=== PATIENT | male | born 1955 | race Caucasian/White ===

== ENCOUNTER 2024-11-06 11:18 | Observation (INO) | payer MEDICARE, BC, SELFPAY ==
[2024-11-06] VITALS (58 sets, daily range): BP systolic 126–236; BP diastolic 60–156; PULSE 47–73; RESP 13–35; TEMP 35.7–36.4; O2SAT 96–100; BMI 25.0
--- NOTE | 2024-11-06 13:28 | EKG_ITS ---
[address] [address] Test Date: 2024-11-06 Pat Name: Jacob Fernández Department: Room: Gender: Male [employer]: ANASTASIIA : 1955 Requested By: Order Number: [id number] Reading MD: Jason Díaz MD Measurements Intervals [place] Rate: 51 P: 117 [place]: 138 QRS: -58 QRSD: 86 T: 73 QT: 488 QTc: 449 Interpretive Statements Sinus bradycardia with sinus arrhythmia Left anterior fascicular block NO PRIOR TRACING Electronically Signed On 11-11-2024 7:42:08 PDT by Jason Díaz MD
--- NOTE | 2024-11-06 14:02 | DI.CT.S_ITS ---
PROCEDURE: CT ANGIO CHEST ABDOMEN PELVIS INDICATIONS: recurrent abd pain, n/v/htn TECHNIQUE: Precontrast 5 mm thick sections acquired from the lung apices to the iliac crests. After the administration of intravenous contrast, 2.5 mm thick sections again acquired from the lung apices to the iliac crests. Maximum intensity projection (MIP) oblique sagittal and coronal reformats were then acquired. For radiation dose reduction, the following was used: automated exposure control. COMPARISON: None. FINDINGS: Image quality: Diagnostic. AORTA: No aortic aneurysm. No acute aortic syndrome. CHEST: Lower Neck: No enlarged lymph nodes. Thyroid: No thyroid nodules which require sonographic evaluation. Axillae: No enlarged lymph nodes. Chest Wall: Unremarkable. Lungs and Pleura: No pneumothorax or pleural effusions. No consolidation or suspicious nodules. Heart: Heart size is enlarged. No pericardial effusion. Thoracic Vessels: Pulmonary arteries demonstrate normal size. Dense 3 vessel coronary artery atherosclerotic calcifications are seen. Mediastinum and Eugenia: No enlarged lymph nodes. Esophagus: No wall thickening. No significant hiatal hernia. ABDOMEN: Liver: No solid mass. Gallbladder: No radiopaque gallstones or wall thickening. Biliary ducts: No biliary dilation. Pancreas: No ductal dilation. Spleen: Size is within normal limits. Adrenal Glands: No adrenal nodules. Kidneys and Ureters: No hydronephrosis. No solid mass. Mild heterogeneous enhancement of bilateral renal parenchyma with bilateral perinephric fat stranding is seen concerning for pyelonephritis. No discrete perinephric fluid collection. Stomach and Bowel: There is no evidence of bowel obstruction. No gross abnormal bowel wall thickening or mesenteric fat stranding. No abscess collection. Colonic diverticulosis without CT evidence of acute diverticulitis. Peritoneum: No abnormal intraperitoneal fluid. No free air. Ventral Wall: No hernia. Abdominal Nodes: No retroperitoneal or mesenteric adenopathy by size criteria. Vessels: Inferior vena cava is normal in size. PELVIS: Pelvic Organs: Unremarkable. Bladder: Unremarkable. Pelvic Nodes: No enlarged lymph nodes. Miscellaneous: No inguinal hernias are seen. Bones: No aggressive appearing bony lesions. Extensive posterior fusion of lumbar spine is seen. No gross hardware loosening or failure. No acute vertebral body compression fracture. IMPRESSION: 1. No thoracic or abdominal aortic aneurysm or gross dissection. No hemodynamically significant stenosis is seen in major branches of thoracic or abdominal aorta. 2. Bilateral perinephric fat stranding with heterogeneous enhancement of bilateral renal parenchyma concerning for infectious or inflammatory pyelonephritis suggest clinical correlation. No obstructing renal stones or hydronephrosis. Normal appearing urinary bladder. 3. No bowel obstruction or abnormal bowel wall thickening. Mild colonic diverticulosis without CT evidence of acute diverticulitis. No free fluid or free air. 4. No acute cardiopulmonary process 5. Dense 3 vessel coronary artery atherosclerotic calcifications. Dictated by: Clifton Ugalde M.D. on 11/06/2024 at 15:00 Approved by: Clifton Ugalde M.D. on 11/06/2024 at 15:13
[2024-11-06 14:03] LABS: Add Manual Diff / Slide Review NO; Hematocrit 43.3 % (41-53); Hemoglobin 14.7 g/dL (13.5-17.5); Lymphocytes Absolute Auto 500 /uL (1100-4500); Mean Corpuscular HGB Conc 34.0 % (30-36); Mean Corpuscular Hemoglobin 31.2 PG (26-34); Mean Corpuscular Volume 91.9 fL (80-100); Platelet Count 196 X10^3/uL (150-400)
[2024-11-06 14:16] LABS: Creatine Kinase 140 U/L (55-170)
[2024-11-06] MEDS: ONDANSETRON 4 MG/2 ML INJ IV (14:16)
[2024-11-06 14:17] LABS: Alanine Aminotransferase 46 IU/L (<50); Albumin 5.3 g/dL (3.5-5.0); Albumin Globulin Ratio 1.8 (1.0-2.8); Alkaline Phosphatase 126 U/L (38-126); Blood Urea Nitrogen 11 mg/dL (9-20); Calcium 9.9 mg/dL (8.4-10.2); Carbon Dioxide 24 mmol/L (22-32); Chloride 99 mmol/L (98-107); Estimated Glomerular Filt Rate > 60 mL/min (>60); Globulin 3.0 g/dL (1.7-4.1); Glucose 161 mg/dL (70-99); HEMOLYSIS 33 (0-50); Lipase 65 U/L (23-300); Potassium 4.3 mmol/L (3.4-5.1); Sodium 136 mmol/L (137-145); Total Protein 8.3 g/dL (6.3-8.2)
[2024-11-06] MEDS: SODIUM CHLORIDE 0.9% 1,000 ML 1000 ML IV (14:17)
[2024-11-06] MEDS: MORPHINE 4 MG/ML INJ IV (14:17)
[2024-11-06 14:28] LABS: Troponin I 0.029 ng/mL (0.01-0.034)
--- NOTE | 2024-11-06 16:27 | ED.NAVMDI ---
HPI - Nausea/Vomiting/Diarrhea General Chief complaint: Nausea/Vomiting/Diarrhea Stated complaint: Chills, hot cold no fever, stomach Time Seen by Provider: 11/06/24 14:00 Source: patient Mode of arrival: Ambulatory Limitations: no limitations History of Present Illness HPI Narrative: 69-year-old male history of hypertension, atrial fibrillation with prior cardioversion, ablation currently on Eliquis, prior prostatectomy for prostate cancer 5 or 6 years ago, dyslipidemia with complaint of recurrent abdominal pain with nausea or vomiting and chills. Patient states he has seen gastroenterology for EGD and colonoscopy, gastric emptying studies states nothing has been found his blood pressure will often get quite high and he feels better after getting fluids, antiemetics and pain medication. Patient presents with recurrent episode today. Patient states he has had these episodes about every 3 or 4 months describes it as epigastric without any radiation he gets children hot intermittently. No shortness of breath. Usually gets nauseated. Did vomit today but does not typically. States he has had normal bowel movements and urination. No dysuria urgency or frequency. No syncope. No new swelling in extremities. Patient's state he has had multiple cardiac workups which has been negative then saw GI and had EGD, colonoscopy, gastric emptying study in his supposed to follow up when he returns home. He notes he has has a history of prostatectomy for prostate cancer 5 or 6 years ago, prior fusion in his lumbar spine, cardioversion and ablation. No tobacco, no alcohol, no recreational drugs other than THC gummy nightly. Patient lives in [place] he is currently visiting in the area. Related Data Home Medications ?Medication ?Instructions ?Recorded ?Confirmed amlodipine 10 mg tablet 10 mg PO DAILY 11/06/24 11/06/24 apixaban 5 mg tablet (Eliquis) 5 mg PO BID 11/06/24 11/06/24 metoprolol succinate 25 mg 12.5 mg PO DAILY 11/06/24 11/06/24 tablet,extended release 24 hr omeprazole 40 mg capsule,delayed 40 mg PO DAILY 11/06/24 11/06/24 release Allergies Allergy/AdvReac Type Severity Reaction Status Date / Time No Known Drug Allergies Allergy Verified 11/06/24 11:53 Review of Systems Review of Systems ROS Unobtainable: All systems reviewed & are unremarkable except as noted in HPI and below Patient History Social History Smoking Status: Current every day smoker Smoking Status: Current every day smoker Exam Narrative Exam Narrative: GENERAL: Alert and oriented x three, male in mild distress HEENT: Head normocephalic, atraumatic, EOMI, pupils reactive, face symmetric, moist mucous membranes NECK: Supple, full range of motion CARDIOVASCULAR: Regular rate and rhythm without murmurs, rubs or gallops. RESPIRATORY: Breath sounds equal bilaterally, no wheezes rales or rhonchi. ABDOMEN: Soft, nontender. Normoactive bowel sounds all 4 quadrants. No guarding or rebound, rigidity, no mass, no pulsatile mass or bruit. : No CVA tenderness EXTREMITIES: Normal range of motion, no clubbing or edema. Neurovascularly intact NEUROLOGICAL: Cranial nerves II through XII grossly intact. Moving all extremities SKIN: Warm, dry, no petechiae, no rashes or lesions. Initial Vital Signs Initial Vital Signs: Vital Signs Temperature 97.5 F L 11/06/24 11:50 Pulse Rate 67 11/06/24 11:50 Respiratory Rate 18 11/06/24 11:50 Blood Pressure 230/93 H 11/06/24 11:50 Pulse Oximetry 99 11/06/24 11:50 Oxygen Delivery Method Room Air 11/06/24 11:50 Course Orders Ordered: ED Orders 11/06/24 13:50 Complete Blood Count AUTO DIFF Stat Comprehensive Metabolic Panel Stat Lipase Stat Troponin & CK Cardiac Panel Stat 11/06/24 14:02 CT angio chest abdomen pelvis Stat 11/06/24 14:44 Urinalysis and Microscopic Stat Urine Culture Stat 11/06/24 16:30 EKG-12 Lead Stat 11/06/24 16:46 Trop I [Troponin I] Stat Nicardipine HCl 25 mg/ Sodium (Chloride) 250 mls @ 50 mls/hr IV TITRATE SURINDER; Protocol Last Titration: 11/06/24 18:25 Dose: 2.5 mg/hr, 25 mls/hr Documented By: Admin: 11/06/24 17:45 Dose: 5 mg/hr, 50 mls/hr Documented By: RICKY Discontinued Medications Acetaminophen (Acetaminophen 325 Mg Tablet) 975 mg PO NOW ONE Stop: 11/06/24 17:05 Last Admin: 11/06/24 17:13 Dose: 975 mg Documented By: RICKY Sodium Chloride (Normal Saline 0.9%) 1,000 mls @ 1,000 mls/hr IV BOLUS ONE Stop: 11/06/24 15:00 Last Infusion: 11/06/24 16:02 Dose: Infused Documented By: Admin: 11/06/24 14:17 Dose: 1,000 mls/hr Documented By: KOKO Ceftriaxone Sodium 1,000 mg/ (Sodium Chloride) 100 mls @ 200 mls/hr IV NOW ONE Stop: 11/06/24 17:06 Last Infusion: 11/06/24 17:44 Dose: Infused Documented By: Admin: 11/06/24 17:14 Dose: 200 mls/hr Documented By: RICKY Lorazepam (Lorazepam 2 Mg/Ml Inj) 0.5 mg IV NOW ONE Stop: 11/06/24 17:39 Last Admin: 11/06/24 17:45 Dose: 0.5 mg Documented By: RICKY Morphine Sulfate (Morphine 4 Mg/Ml Inj) 4 mg IV NOW ONE Stop: 11/06/24 14:02 Last Admin: 11/06/24 14:17 Dose: 4 mg Documented By: KOKO Nitroglycerin (Nitroglycerin 0.4 Mg Sl Tab) 0.4 mg SL NOW ONE Stop: 11/06/24 17:05 Last Admin: 11/06/24 17:14 Dose: 0.4 mg Documented By: RICKY Ondansetron HCl (Ondansetron 4 Mg/2 Ml Inj) 4 mg IV NOW PRN PRN Reason: Nausea And Vomiting Ondansetron HCl (Ondansetron 4 Mg Odt) 4 mg PO NOW PRN PRN Reason: Nausea And Vomiting Ondansetron HCl (Ondansetron 4 Mg/2 Ml Inj) 4 mg IV NOW ONE Stop: 11/06/24 14:02 Last Admin: 11/06/24 14:16 Dose: 4 mg Documented By: KOKO Vital Signs Vital signs: Vital Signs - 8 hr 11/06/24 11:50 11/06/24 14:00 11/06/24 16:32 Temperature 97.5 F L Pulse Rate 67 57 L 49 L Respiratory Rate 18 18 16 Blood Pressure 230/93 H 236/99 H 204/82 H Pulse Oximetry 99 99 97 Oxygen Delivery Method Room Air Room Air Room Air 11/06/24 17:00 11/06/24 17:00 11/06/24 17:14 Temperature Pulse Rate 50 L 49 L Respiratory Rate 21 Blood Pressure 221/156 H 221/156 H Pulse Oximetry 99 Oxygen Delivery Method 11/06/24 17:30 11/06/24 17:31 11/06/24 17:31 Temperature Pulse Rate 48 L 47 L Respiratory Rate 16 Blood Pressure 206/85 H Pulse Oximetry 96 97 Oxygen Delivery Method MDM - Nausea/Vomiting/Diarrhea Lab Data 11/06/24 13:50 11/06/24 13:50 Labs: Lab Results 11/06/24 11/06/24 11/06/24 Range/Units 13:50 14:44 16:46 WBC 7.3 (4.5-11.0) X10^3/uL RBC 4.72 (4.5-5.9) X10^6/uL Hgb 14.7 (13.5-17.5) g/dL Hct 43.3 (41-53) % MCV 91.9 (80-100) fL MCH 31.2 (26-34) PG MCHC 34.0 (30-36) % RDW 12.2 (11.6-14.8) % Plt Count 196 (150-400) X10^3/uL Neut % (Auto) 89.4 H (50-75) % Lymph % (Auto) 6.4 L (25-40) % Bell % (Auto) 3.9 (3-14) % Eos % (Auto) 0.1 L (2-4) % Baso % (Auto) 0.2 (0-2) % Neut # (Auto) 6500 (8169-4263) /uL Lymph # (Auto) 500 L (4675-2761) /uL Bell # (Auto) 300 (0-900) /uL Eos # (Auto) 0 (0-450) /uL Baso # (Auto) 0 (0-100) /uL Sodium 136 L (137-145) mmol/L Potassium 4.3 (3.4-5.1) mmol/L Chloride 99 (98-107) mmol/L Carbon Dioxide 24 (22-32) mmol/L BUN 11 (9-20) mg/dL Creatinine 0.65 L (0.66-1.25) mg/dL Estimated GFR > 60 (>60) mL/min BUN/Creatinine Ratio 16.9 (6-22) Glucose 161 H (70-99) mg/dL Calcium 9.9 (8.4-10.2) mg/dL Total Bilirubin 0.9 (0.2-1.3) mg/dL AST 43 (17-59) IU/L ALT 46 (<50) IU/L Alkaline Phosphatase 126 (38-126) U/L Total Creatine Kinase 140 (55-170) U/L Troponin I 0.029 0.063 H (0.01-0.034) ng/mL Total Protein 8.3 H (6.3-8.2) g/dL Albumin 5.3 H (3.5-5.0) g/dL Globulin 3.0 (1.7-4.1) g/dL Albumin/Globulin Ratio 1.8 (1.0-2.8) Lipase 65 (23-300) U/L Urine Color Yellow Urine Appearance Clear Urine pH 7.0 (4.5-8.0) Ur Specific [place] <=1.005 (1.000-1.035) Urine Protein Negative (Negative) Urine Glucose (UA) Negative (Negative) g/dL Urine Ketones 1+ H (NEGATIVE) Urine Occult Blood Negative (Negative) Urine Nitrate Negative (Negative) Urine Bilirubin Negative (NEGATIVE) Urine Urobilinogen 0.2 (0.2) E.U./dL Ur Leukocyte Esterase Trace H (NEGATIVE) Urine RBC None seen (0-5/HPF) Urine WBC 10-30/hpf H (0-5/HPF) Ur Squamous Epith Cells None seen (0-5/HPF) Urine Bacteria Moderate (10-30) H (None) Ur Culture Indicated? Specimen cultured Vol Urine Centrifuged 10ml (spun) ECG Data Attestation: I personally reviewed and interpreted this ECG as follows: Prior ECG tracings: not available for review Interpretation: Sinus bradycardia with sinus arrhythmia left anterior fascicular block rate of 51 CT 138 QRS 86 QTC of 449.? No prior for comparison Repeat EKG shows sinus bradycardia left anterior fascicular block rate of 50 CT 158 QRS of 94 QTC of 448, no acute dynamic changes. MDM Narrative Medical decision making narrative: Labs show normal white count hemoglobin and platelets, chemistries shows sodium 136 BUN electrolytes are appropriate glucose is 161 LFTs are negative troponin 0.029. Total protein albumin are high. Sinus bradycardia with sinus arrhythmia left anterior fascicular block rate of 51 CT 138 QRS 86 QTC of 449. No prior for comparison. Troponin is indeterminate 0.063. CTA shows no dissection or aortic aneurysm no hemodynamically significant stenosis in the major branches of thoracic or abdominal aorta. Bilateral perinephric perinephric fat stranding concerning for infectious or inflammatory pyelonephritis suggested can going to hold correlation. No obstructing stones or hydro, normal-appearing urinary bladder. No obstructive changes mild colonic diverticulosis without evidence of diverticulitis. No acute cardiopulmonary process. Dense three-vessel coronary artery atherosclerotic calcifications. Urine shows trace leuks 10-30 WBCs moderate bacteria no nitrates. 1+ ketones. Labs show fluids, Zofran and morphine, patient had sublingual nitro, nicardipine drip. Did have changes consistent with a infection with possible pyelonephritis on CT imaging and given Rocephin. Patient's blood pressure was improving but during our evaluation increased again he has had nitro sublingual before we will give a dose. He notes he is typically bradycardic after his ablation. He states pain is improved and very mild is open to a dose of acetaminophen. Repeat troponin was pending on repeat is indeterminate. Spoke with Dr. Zepeda, discussed we would like to keep for hypertensive emergency. Has a indeterminate troponin on repeat, no acute ST elevation depression but does not appear to potentially have some end-organ changes. He accepts for inpatient. Nicardipine drip drip being started, patient did have a dose of nitro sublingual which was helpful with BP prior to this. Did review patient's urinalysis as well as CT imaging changes for kidneys received a dose of Rocephin although this should not make him hypertensive. Critical Care Time Critical Care Time Critical Care Time: Yes Total Critical Care Time: 45 Attestation: The high probability of a clinically significant, sudden or life threatening deterioration of the [systems] system(s) required my full and direct attention, intervention and personal management. The aggregate critical care time was [--] minutes. This time is in addition to time spent performing reported procedures but includes the following: [x] Data Review and interpretation [x] Patient assessment and monitoring of vital signs [x] Documentation [x] Medication orders and management Discharge Plan Departure Patient Disposition: Admitted As Inpatient Clinical Impression: Hypertensive emergency Admit Date/Time: 11/06/24 17:39 Admit Provider: Tejinder Zepeda
--- NOTE | 2024-11-06 16:44 | EKG_ITS ---
[address] [address] Test Date: 2024-11-06 Pat Name: Jacob Fernández Department: Room: 227 Gender: Male [employer]: : 1955 Requested By: Order Number: [id number] Reading MD: Jason Díaz MD Measurements Intervals [place] Rate: 50 P: 33 MT: 158 QRS: -48 QRSD: 94 T: 78 QT: 492 QTc: 448 Interpretive Statements Sinus bradycardia Left anterior fascicular block Anterior infarct , age undetermined NO SIGNIFICANT CHANGE FROM PRIOR TRACING Electronically Signed On 11-11-2024 7:43:10 PDT by Jason Díaz MD
[2024-11-06 16:50] LABS: Appearance Urine UA CLEAR; Bilirubin Urine UA NEGATIVE (NEGATIVE); Color Urine UA YELLOW; Glucose Urine UA NEGATIVE (Negative); Ketones Urine UA 1+ (NEGATIVE); Leukocyte Esterase Urine UA TRACE (NEGATIVE); Nitrite Urine UA NEGATIVE (Negative); Occult Blood Urine UA NEGATIVE (Negative); Protein Urine UA NEGATIVE (Negative); Specific Gravity Urine UA <=1.005 (1.000-1.035); Urobilinogen Urine UA 0.2 E.U./dL (0.2); pH Urine UA 7.0 (4.5-8.0)
[2024-11-06 17:04] LABS: Culture Indicated Urine Specimen Cultured
[2024-11-06] MEDS: ACETAMINOPHEN 325 MG TABLET 975 MG PO (17:13)
[2024-11-06] MEDS: NITROGLYCERIN 0.4 MG SL TAB SL (17:14)
[2024-11-06 17:26] LABS: Troponin I 0.063 ng/mL (0.01-0.034)
--- NOTE | 2024-11-06 18:43 | DI.ECHO.S_ITS ---
:Name: TAMIE CAST Study Date: 11/07/2024 Height: 65 in : :[facility] ReadingLocation: Weight: 150 lb : : Gender: Male BSA: 1.8 m2 : :: 1955 Age: 69 yrs BP: 134/61 mmHg: :Reason For Study: Hypertensive crisis : :Ordering Physician: RACHELE YOUNG Performed By: Marlon Douglas : :Referring: RACHELE YOUNG : + + Interpretation Summary The left ventricle is normal in size. Left ventricular wall thickness is mild-moderately increased. Left ventricular systolic function is normal. The ejection fraction is estimated to be 65-70%. There are no focal wall motion abnormalities. The right ventricle is normal in size and function. The right ventricular systolic pressure is estimated to be at least 45 mmHg based on an estimated right atrial pressure of 8 mm Hg. The left atrium is moderately dilated. The right atrium is moderately dilated. There is no significant valvular heart disease. The aortic root is normal size. Procedure: A two-dimensional transthoracic echocardiogram with color flow and Doppler was performed. The study quality was technically adequate. There is no prior echocardiogram noted for this patient. The heart rate ranged between 60-76 bpm during the study. Left Ventricle: The left ventricle is normal in size. Left ventricular wall thickness is mild-moderately increased. Left ventricular systolic function is normal. The ejection fraction is estimated to be 65-70%. There are no focal wall motion abnormalities. Diastolic function could not be accurately assessed due to contradictory data. Right Ventricle: The right ventricle is normal in size and function. Atria: The left atrium is moderately dilated. The right atrium is moderately dilated. There is no Doppler evidence for an interatrial shunt. Mitral Valve: The mitral valve leaflets appear to open well. There is no mitral valve stenosis. There is trace mitral regurgitation. Aortic Valve: The aortic valve is trileaflet. The aortic valve opens well. There is no aortic valve stenosis. There is trace aortic regurgitation. Tricuspid Valve: The tricuspid valve leaflets are thin and pliable. There is mild tricuspid regurgitation. The right ventricular systolic pressure is estimated to be at least 45 mmHg based on an estimated right atrial pressure of 8 mm Hg. Pulmonic Valve: The pulmonic valve is not well seen, but is grossly normal. There is trace pulmonic regurgitation. There is no significant valvular heart disease. Great Vessels: The aortic root is normal size. The ascending aorta could not be visualized. The aortic arch could not be visualized. The IVC is dilated (diameter is greater than 2.1 cm) yet it collapses greater than 50% with a sniff. This suggests a right atrial pressure of 8 mm Hg. Pericardium/ Pleura There is no pericardial effusion. MMode/2D Measurements & Calculations LVIDd: 5.1 cm LVOT diam: 2.3 cm LVIDs: 2.9 cm Ao root diam: 3.2 cm FS: 41.6 % IVSd: 1.4 cm LVPWd: 1.3 cm LV felder. diameter/BSA (cm/m^2): 2.9 LV sys. diameter/BSA (cm/m^2): 1.7 LA A2 area: 26.6 cm2 RA long axis: 6.6 cm LA A4 area: 24.0 cm2 RA area: 26.0 cm2 LA length (vol): 6.3 cm RA vol: 86.8 ml LA vol: 86.6 ml RA : 49.6 ml/m2 LA vol index: 49.5 ml/m2 IVC diam: 2.2 cm RVD1 (basal): 3.8 cm RVD2 (mid): 3.3 cm TAPSE: 3.4 cm Doppler Measurements & Calculations Ao V2 max: 195.2 cm/sec LVOT Max Fidencio: 128.9 cm/sec Ao V2 mean: 128.7 cm/sec LV V1 max P.6 mmHg Ao max P.2 mmHg LV V1 VTI: 27.2 cm Ao mean P.6 mmHg CM(I,D): 2.9 cm2 Ao V2 VTI: 39.3 cm CM(V,D): 2.7 cm2 sev ratio: 0.69 CM indexed to BSA (cm^2/m^2): 1.6 AI P1/2t: 700.7 msec AI dec slope: 150.4 cm/sec2 MV E max fidencio: 84.2 cm/sec TR max fidencio: 305.1 cm/sec MV A max fidencio: 32.2 cm/sec TR max P.2 mmHg MV E/A: 2.6 PA V2 max: 120.7 cm/sec Med Peak E' Fidencio: 9.4 cm/sec PA V2 mean: 90.9 cm/sec E/E' med: 9.0 PA mean P.6 mmHg Lat Peak E' Fidencio: 12.2 cm/sec PA pr(Accel): 25.9 mmHg E/E' lat: 6.9 E/e' average: 7.9 MV dec time: 0.28 sec SV(LVOT): 113.3 ml Qp/Qs (V,Ao): 1.0/5.6 Qp/Qs (V,LVOT): 1.0/1.9 Reading Physician:08:58 AM
--- NOTE | 2024-11-06 18:45 | P.HP_ITS ---
History of Present Illness History of Present Illness Date Patient Seen: 11/06/24 Chief complaint: Chills, hot cold no fever, stomach Narrative: Chief complaint: Abdominal pain with severe hypertensive crisis negative CT for dissected aneurysm History of present illness: 11/06: 69-year-old male history atrial fibrillation prior cardioversion ablation currently on Eliquis with recurrent abdominal pain nausea vomiting and chills he has had these episodes frequently in the past workup with Gastroenterology EGD colonoscopy with no findings Findings in the emergency department: Labs show normal white count hemoglobin and platelets, chemistries shows sodium 136 BUN electrolytes are appropriate glucose is 161 LFTs are negative troponin 0.029. Total protein albumin are high. Sinus bradycardia with sinus arrhythmia left anterior fascicular block rate of 51 [place] 138 QRS 86 QTC of 449. No prior for comparison. Troponin is indeterminate 0.063. CTA shows no dissection or aortic aneurysm no hemodynamically significant stenosis in the major branches of thoracic or abdominal aorta. Bilateral perinephric perinephric fat stranding concerning for infectious or inflammatory pyelonephritis suggested can going to hold correlation. No obstructing stones or hydro, normal-appearing urinary bladder. No obstructive changes mild colonic diverticulosis without evidence of diverticulitis. No acute cardiopulmonary process. Dense three-vessel coronary artery atherosclerotic calcifications. Urinalysis shows 10-30 WBCs Review of systems: No headache diplopia loss of consciousness No urinary symptom Physical exam: Fatigued-appearing elderly gentleman HEENT unremarkable Heart rate and rhythm regular no murmurs Lungs clear Abdomen nontender Extremities no edema Abdominal pain with findings unremarkable except for possible upper urinary tract infection but without obstructing stones or hydronephrosis and a normal- appearing urinary bladder * Urinalysis sent for culture * Blood culture * Empiric Rocephin * Adequate analgesia Hypertensive crisis without overt signs of dissection pulmonary edema or myocardial infarction * Cardene drip * Echocardiogram * Serial troponins Chronic atrial fibrillation status post ablation currently in sinus rhythm * Continue Eliquis DVT prophylaxis: * Covered with Eliquis Code status: * Full code Disposition: * Inpatient management on Cardene drip serial troponins will require 48 hours of hospitalization and requirements of the ICU 55 minutes were involved in the evaluation of this patient including [id number] evaluation in-person physical evaluation review of objective laboratory EKG and imaging findings discussion with emergency provider and nursing [facility] Social History Smoking Status: Current every day smoker Meds Home Medications and Allergies Home Medications ?Medication ?Instructions ?Recorded ?Confirmed ?Type amlodipine 10 mg tablet 10 mg PO DAILY 11/06/2410/28 History apixaban 5 mg tablet (Eliquis) 5 mg PO BID 11/06/24 History metoprolol succinate 25 mg 12.5 mg PO DAILY 11/06/24 0 11/06/24 History tablet,extended release 24 hr omeprazole 40 mg capsule,delayed 40 mg PO DAILY 11/06/24 History release Allergies Allergy/AdvReac Type Severity Reaction Status Date / Time No Known Drug Allergies Allergy Verified 11/06/24 11:53 Exam Vital Signs (past 8 hours): - 11/06/24 11:50 11/06/24 14:00 11/06/24 16:32 Temperature 97.5 F L Pulse Rate 67 57 L 49 L Respiratory Rate 18 18 16 Blood Pressure 230/93 H 236/99 H 204/82 H Pulse Oximetry 99 99 97 Oxygen Delivery Method Room Air Room Air Room Air 11/06/24 17:00 11/06/24 17:00 11/06/24 17:14 Temperature Pulse Rate 50 L 49 L Respiratory Rate 21 Blood Pressure 221/156 H 221/156 H Pulse Oximetry 99 Oxygen Delivery Method 11/06/24 17:30 11/06/24 17:31 11/06/24 17:31 Temperature Pulse Rate 48 L 47 L Respiratory Rate 16 Blood Pressure 206/85 H Pulse Oximetry 96 97 Oxygen Delivery Method 11/06/24 18:00 11/06/24 18:00 11/06/24 18:05 Temperature Pulse Rate 61 54 L Respiratory Rate 20 21 Blood Pressure 198/81 H Pulse Oximetry 98 99 Oxygen Delivery Method 11/06/24 18:05 11/06/24 18:10 11/06/24 18:10 Temperature Pulse Rate 60 Respiratory Rate 20 Blood Pressure 194/82 H 182/78 H Pulse Oximetry 99 Oxygen Delivery Method 11/06/24 18:16 11/06/24 18:16 11/06/24 18:20 Temperature Pulse Rate 56 L 55 L Respiratory Rate 19 Blood Pressure 171/75 H Pulse Oximetry 99 99 Oxygen Delivery Method 11/06/24 18:20 11/06/24 18:25 11/06/24 18:25 Temperature Pulse Rate 54 L Respiratory Rate 16 Blood Pressure 178/77 H 172/75 H Pulse Oximetry 99 Oxygen Delivery Method Oxygen Delivery Method Room Air Objective Labs 11/06/24 13:50 11/06/24 13:50 Labs: Laboratory Results - last 24 hr 11/06/24 11/06/24 11/06/24 13:50 14:44 16:46 WBC 7.3 RBC 4.72 Hgb 14.7 Hct 43.3 MCV 91.9 MCH 31.2 MCHC 34.0 RDW 12.2 Plt Count 196 Neut % (Auto) 89.4 H Lymph % (Auto) 6.4 L [place] % (Auto) 3.9 Eos % (Auto) 0.1 L Baso % (Auto) 0.2 Neut # (Auto) 6500 Lymph # (Auto) 500 L [place] # (Auto) 300 Eos # (Auto) 0 Baso # (Auto) 0 Sodium 136 L Potassium 4.3 Chloride 99 Carbon Dioxide 24 BUN 11 Creatinine 0.65 L Estimated GFR > 60 BUN/Creatinine Ratio 16.9 Glucose 161 H Calcium 9.9 Total Bilirubin 0.9 AST 43 ALT 46 Alkaline Phosphatase 126 Total Creatine Kinase 140 Troponin I 0.029 0.063 H Total Protein 8.3 H Albumin 5.3 H Globulin 3.0 Albumin/Globulin Ratio 1.8 Lipase 65 Urine Color Yellow Urine Appearance Clear Urine pH 7.0 Ur Specific [place] <=1.005 Urine Protein Negative Urine Glucose (UA) Negative Urine Ketones 1+ H Urine Occult Blood Negative Urine Nitrate Negative Urine Bilirubin Negative Urine Urobilinogen 0.2 Ur Leukocyte Esterase Trace H Urine RBC None seen Urine WBC 10-30/hpf H Ur Squamous Epith Cells None seen Urine Bacteria Moderate (10-30) H Ur Culture Indicated? Specimen cultured Vol Urine Centrifuged 10ml (spun) Assessment & Plan Time-Based Coding :: [TOTAL MINUTES] spent with patient and on the chart (including review of chart, obtaining history, exam, reviewing outside data, placing orders, documenting exam and treatment plan, and counseling patient) on [DATE].
--- NOTE | 2024-11-06 19:18 | CM.DANOTE ---
ED CRITICAL POWER TECHNICIAN DCP Assessment Note: Pt is a 69yo male, resident of [place], [place] , is admitted for hypertensive emergency. Pt is visiting [facility] [place], lives in [place] with his . Pt's Primary Care Provider is Dr. Judy Frederick and insurance is Medicare and [facility] out of [facility]. Reviewed chart and discussed with multidisciplinary team pt's medical status and initial discharge needs. ED CRITICAL POWER TECHNICIAN met w/patient at bedside; introduced self and role. Patient was found in bed, alert and oriented, cooperative with assessment. Pt confirmed living situation and good support in . Pt expressed preference in discharge home when medically cleared. Pt has a hx of home health in [place] after a back fusion surgery, no SNF rehab history. Plan: Acute care admission for repeat troponin and pain management. Anticipating dc home with family when medically cleared and pain managed, spouse to transport. ED CRITICAL POWER TECHNICIAN will follow closely for coordination of discharge plans. SUPRIYA Persaud Discharge Planning/Care Management CM Discharge Assessment Start: 11/06/24 19:13 Freq: Status: Active Protocol: Document 11/06/24 19:14 MW (Rec: 11/06/24 19:18 MW [id number]) Discharge Planning Assessment Assigned Discharge JAVED [place] Hand Engraver Provider Dr. Judy Frederick MD Insurance BCBS,Medicare DPOA/Assigned Eliana Spouse Designee Name Contact Information [phone] Advance Directives? No Prior Living Other Arrangements Comment Currently visiting, staying at the [facility]. Household Members spouse Type of Drives own vehicle transporation used prior to admit Independent with ADL Yes 's Is patient alert and Yes oriented? Barriers to No Discharge Discharge Plan Home Review Status In Process Please Provide Date 11/06/24 Initial DC Assessment Was Performed Next Review Type Continued Stay Review
[2024-11-06 19:52] LABS: Troponin I 0.075 ng/mL (0.01-0.034)
--- NOTE | 2024-11-06 21:51 | PC.NURSE ---
care and report to zhang in the icu
--- NOTE | 2024-11-06 22:26 | PC.NURSE ---
Addendum entered by Sabrina Faria RN 11/07/24 07:25: 0720 Report given to alban RUVALCABA. Plan of care discussed. Addendum entered by Sabrina Faria RN 11/07/24 07:10: 0650 made aware of patient troponin level. No new orders given at this time. Patient with no complaints at this time. Addendum entered by Sabrina Faria RN 11/07/24 02:05: 1404 MD aware of EKG reading results. Addendum entered by Sabrina Faria RN 11/07/24 01:55: 0154 Patient complaining of heartburn. EKG ordered and to be obtained. made aware of recent patient changes. Addendum entered by Sabrina Faria RN 11/07/24 01:52: 0150 Patient experienced 14 beats of V-tach. Patient with no complaints at this time. Vitals within normal ranges. MD Deleon made aware. Original Note: 2220 Patient on unit at this time. Patient AAO x's 4. Able to DINH. Denies pain, numbness and tingling. Call light within reach and bed in lowest position.
[2024-11-06] MEDS: APIXABAN 5 MG TABLET PO (23:13)
[2024-11-06 23:50] LABS: MRSA (Nasal) PCR NOT DETECTED (Not Detect)
[2024-11-07] VITALS (29 sets, daily range): BP systolic 111–187; BP diastolic 52–81; PULSE 48–93; RESP 14–57; TEMP 35.8–36.4; O2SAT 96–100
--- NOTE | 2024-11-07 01:54 | EKG_ITS ---
[place] [id number] [place] [id number] Test Date: 2024-11-07 Pat Name: Jacob Fernández Department: [facility] Room: 227 Gender: Male Senior Front End Engineer: : 1955 Requested By: Order Number: [id number] Reading MD: Jason Díaz MD Measurements Intervals [place] Rate: 59 P: 94 HI: 166 QRS: -54 QRSD: 88 T: 46 QT: 428 QTc: 423 Interpretive Statements Sinus bradycardia with premature atrial complexes Left axis deviation Inferior infarct , age undetermined Cannot rule out Anterior infarct , age undetermined Electronically Signed On 11-11-2024 7:43:23 PDT by Jason Díaz MD
[2024-11-07] MEDS: CALCIUM CARBONATE 500 MG TAB PO (02:24)
[2024-11-07 05:30] LABS: Troponin I 0.084 ng/mL (0.01-0.034)
[2024-11-07 05:54] LABS: Blood Urea Nitrogen 12 mg/dL (9-20); Calcium 9.5 mg/dL (8.4-10.2); Carbon Dioxide 24 mmol/L (22-32); Chloride 101 mmol/L (98-107); Estimated Glomerular Filt Rate > 60 mL/min (>60); Glucose 103 mg/dL (70-99); HEMOLYSIS 19 (0-50); Potassium 3.8 mmol/L (3.4-5.1); Sodium 135 mmol/L (137-145)
[2024-11-07] MEDS: PANTOPRAZOLE DR 40 MG TABLET PO (06:29)
[2024-11-07] MEDS: APIXABAN 5 MG TABLET PO (08:12)
[2024-11-07] MEDS: METOPROLOL ER 25 MG TABLET 12.5 MG PO (08:12)
--- NOTE | 2024-11-07 09:41 | P.DS_ITS ---
History of Present Illness History of Present Illness Date Patient Seen: 11/07/24 Chief complaint: Chills, hot cold no fever, stomach Narrative: Chief complaint: Abdominal pain with severe hypertensive crisis negative CT for dissected aneurysm History of present illness: 11/06: 69-year-old male history atrial fibrillation prior cardioversion ablation currently on Eliquis with recurrent abdominal pain nausea vomiting and chills he has had these episodes frequently in the past workup with Gastroenterology EGD colonoscopy with no findings Findings in the emergency department: Labs show normal white count hemoglobin and platelets, chemistries shows sodium 136 BUN electrolytes are appropriate glucose is 161 LFTs are negative troponin 0.029. Total protein albumin are high. Sinus bradycardia with sinus arrhythmia left anterior fascicular block rate of 51 [place] 138 QRS 86 QTC of 449. No prior for comparison. Troponin is indeterminate 0.063. CTA shows no dissection or aortic aneurysm no hemodynamically significant stenosis in the major branches of thoracic or abdominal aorta. Bilateral perinephric perinephric fat stranding concerning for infectious or inflammatory pyelonephritis suggested can going to hold correlation. No obstructing stones or hydro, normal-appearing urinary bladder. No obstructive changes mild colonic diverticulosis without evidence of diverticulitis. No acute cardiopulmonary process. Dense three-vessel coronary artery atherosclerotic calcifications. 11/07: No further pain no fevers or chills overnight no chest pain Urinalysis shows 10-30 WBCs Review of systems: No headache diplopia loss of consciousness No urinary symptom Physical exam: Fatigued-appearing elderly gentleman HEENT unremarkable Heart rate and rhythm regular no murmurs Lungs clear Abdomen nontender Extremities no edema Abdominal pain with findings unremarkable except for possible upper urinary tract infection but without obstructing stones or hydronephrosis and a normal- appearing urinary bladder * Urinalysis sent for culture * Blood culture * Empiric Rocephin * Adequate analgesia Hypertensive crisis without overt signs of dissection pulmonary edema or myocardial infarction * Cardene drip * Echocardiogram * Serial troponins Chronic atrial fibrillation status post ablation currently in sinus rhythm * Continue Eliquis DVT prophylaxis: * Covered with Eliquis Code status: * Full code Disposition: * Discharge to home 35 minutes were involved in the evaluation of this patient including [id number] evaluation in-person physical evaluation review of objective laboratory EKG and imaging findings discussion with emergency provider and nursing Discharge Providers Provider Date of admission: 11/06/24 17:39 Discharge Date: 11/07/24 Consults: 11/06/24 23:07 Consult to Tele-special assets officer Routine Comment: Consulting Provider: [employer] Reason for consultation: [employer] T[employer] services Discharge provider: Tejinder Zepeda MD Exam Vital Signs (past 8 hours): - 11/07/24 01:50 11/07/24 02:00 11/07/24 03:00 Temperature Pulse Rate 54 L 60 48 L Respiratory Rate 18 19 26 H Blood Pressure 111/52 L 160/71 H 141/65 H Pulse Oximetry 96 99 97 Oxygen Delivery Method Oxygen Flow Rate 11/07/24 04:00 11/07/24 05:00 11/07/24 06:00 Temperature 96.5 F L Pulse Rate 62 50 L 60 Respiratory Rate 14 18 25 H Blood Pressure 187/78 H 134/61 172/81 H Pulse Oximetry 98 96 96 Oxygen Delivery Method Oxygen Flow Rate 11/07/24 06:34 11/07/24 06:35 11/07/24 06:35 Temperature Pulse Rate 69 87 Respiratory Rate 17 26 H Blood Pressure 172/81 H Pulse Oximetry 98 99 Oxygen Delivery Method Oxygen Flow Rate 11/07/24 07:00 11/07/24 07:30 11/07/24 07:46 Temperature Pulse Rate 88 60 Respiratory Rate 22 18 Blood Pressure 145/66 H Pulse Oximetry 97 96 Oxygen Delivery Method Oxygen Flow Rate 11/07/24 07:46 11/07/24 08:00 11/07/24 08:00 Temperature 97.6 F Pulse Rate 64 64 62 Respiratory Rate 17 20 18 Blood Pressure 145/66 H Pulse Oximetry 98 100 99 Oxygen Delivery Method Oxygen Flow Rate 0 11/07/24 08:00 11/07/24 08:12 11/07/24 08:15 Temperature Pulse Rate 62 75 Respiratory Rate 20 Blood Pressure 145/66 H Pulse Oximetry 99 Oxygen Delivery Method Room Air Oxygen Flow Rate 11/07/24 08:15 11/07/24 09:33 Temperature Pulse Rate 71 Respiratory Rate Blood Pressure 158/71 H Pulse Oximetry Oxygen Delivery Method Oxygen Flow Rate Oxygen Delivery Method Room Air Oxygen Flow Rate 0 Objective Labs 11/06/24 13:50 11/07/24 04:07 Labs: Laboratory Results - last 24 hr 11/06/24 11/06/24 11/06/24 13:50 14:44 16:46 WBC 7.3 RBC 4.72 Hgb 14.7 Hct 43.3 MCV 91.9 MCH 31.2 MCHC 34.0 RDW 12.2 Plt Count 196 Neut % (Auto) 89.4 H Lymph % (Auto) 6.4 L [place] % (Auto) 3.9 Eos % (Auto) 0.1 L Baso % (Auto) 0.2 Neut # (Auto) 6500 Lymph # (Auto) 500 L [place] # (Auto) 300 Eos # (Auto) 0 Baso # (Auto) 0 Sodium 136 L Potassium 4.3 Chloride 99 Carbon Dioxide 24 BUN 11 Creatinine 0.65 L Estimated GFR > 60 BUN/Creatinine Ratio 16.9 Glucose 161 H Calcium 9.9 Total Bilirubin 0.9 AST 43 ALT 46 Alkaline Phosphatase 126 Total Creatine Kinase 140 Troponin I 0.029 0.063 H Total Protein 8.3 H Albumin 5.3 H Globulin 3.0 Albumin/Globulin Ratio 1.8 Lipase 65 Urine Color Yellow Urine Appearance Clear Urine pH 7.0 Ur Specific [place] <=1.005 Urine Protein Negative Urine Glucose (UA) Negative Urine Ketones 1+ H Urine Occult Blood Negative Urine Nitrate Negative Urine Bilirubin Negative Urine Urobilinogen 0.2 Ur Leukocyte Esterase Trace H Urine RBC None seen Urine WBC 10-30/hpf H Ur Squamous Epith Cells None seen Urine Bacteria Moderate (10-30) H Ur Culture Indicated? Specimen cultured Vol Urine Centrifuged 10ml (spun) Nasal Screen MRSA (PCR) 11/06/24 11/06/24 11/07/24 19:22 22:28 04:07 WBC RBC Hgb Hct MCV MCH MCHC RDW Plt Count Neut % (Auto) Lymph % (Auto) [place] % (Auto) Eos % (Auto) Baso % (Auto) Neut # (Auto) Lymph # (Auto) [place] # (Auto) Eos # (Auto) Baso # (Auto) Sodium 135 L Potassium 3.8 Chloride 101 Carbon Dioxide 24 BUN 12 Creatinine 0.64 L Estimated GFR > 60 BUN/Creatinine Ratio 18.8 Glucose 103 H Calcium 9.5 Total Bilirubin AST ALT Alkaline Phosphatase Total Creatine Kinase Troponin I 0.075 H 0.084 H Total Protein Albumin Globulin Albumin/Globulin Ratio Lipase Urine Color Urine Appearance Urine pH Ur Specific [place] Urine Protein Urine Glucose (UA) Urine Ketones Urine Occult Blood Urine Nitrate Urine Bilirubin Urine Urobilinogen Ur Leukocyte Esterase Urine RBC Urine WBC Ur Squamous Epith Cells Urine Bacteria Ur Culture Indicated? Vol Urine Centrifuged Nasal Screen MRSA (PCR) Not detected PFSH Social History household members: spouse Smoking Status: Never smoker Discharge Plan Discharge Plan Patient Disposition: Home Discharge orders & Medications Prescriptions: Continued omeprazole 40 mg capsule,delayed release(DR/EC) 40 mg PO DAILY amlodipine 10 mg tablet 10 mg PO DAILY metoprolol succinate 25 mg tablet extended release 24 hr 12.5 mg PO DAILY Eliquis 5 mg tablet 5 mg PO BID Visit Report/Discharge Packet Stand Alone Forms: Patient Portal/API, Stroke Signs & Symptoms
[2024-11-07 10:32] LABS: Troponin I 0.061 ng/mL (0.01-0.034)
--- NOTE | 2024-11-07 12:03 | PC.NURSE ---
IV D/C'D. DISCHARGE PACKET DISCUSSED WITH PATIENT/ . ALL QUESTIONS ANSWERED. SIG PAGE SIGNED AND PLACED IN CHART.
--- NOTE | 2024-11-07 12:30 | PC.NURSE ---
PT REFUSED WHEELCHAIR. WALKED OUT WITH AT 1208. ALL BELONGINGS WITH PATIENT.
--- NOTE | 2024-11-07 14:54 | CM.DPC ---
DCP Discharge Home Per MD, pt's labs are stable and pt can discharge home today with outpt f/u and no identified barrier to discharge. Per RN, pt has been independent in the room and dc instructions provided and taken to [facility] for discharge back to [place] with spouse and they obtained reservation for the [facility]. JAVED Gonzalez
--- NOTE | 2024-11-07 16:44 | EKG_ITS ---
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
== END 2024-11-07 12:08 | disposition home or self-care (01) ==
LOC: ED 17:40 → AC 17:48 → ICU 11-07 06:34 → AC 11-07 10:47 → ICU 11-07 10:47
PROVIDERS: Internal Medicine; Admitting Provider Internal Medicine; Emergency Provider Emergency Medicine; Referring Provider Emergency Medicine; Visit Provider Internal Medicine
DX: I16.9 Hypertensive crisis, unspecified (principal); I44.4 Left anterior fascicular block; R10.9 Unspecified abdominal pain; I48.20 Chronic atrial fibrillation, unspecified; I10 Essential (primary) hypertension; E78.5 Hyperlipidemia, unspecified; Z98.1 Arthrodesis status; F17.210 Nicotine dependence, cigarettes, uncomplicated; Z85.46 Personal history of malignant neoplasm of prostate; Z79.01 Long term (current) use of anticoagulants
CPT/HCPCS: 36415; 71275; 74174; 80048; 80053; 81001; 82550; 83690; 84484; 85025; 87077; 87086; 87186; 87797; 93005; 93306; 96361; 96365; 96366; 96367; 96375; 99285; 99291; G0378; J0696; J2060; J2270; J2405; Q9967